=== PATIENT | female | born 1975 | race Hispanic/Latino ===

== ENCOUNTER 2017-10-09 13:03 | Emergency (ER) | payer OTHER ==
[~2017-10-09] VITALS: Ht 160 cm; Wt 92.5 kg
[2017-10-09 14:08] VITALS: BP 121/69
== END 2017-10-09 14:12 | disposition home or self-care (01) ==
LOC: FSED 13:03
DX: S90.572A Other superficial bite of ankle, left ankle, initial encounter (principal); W54.0XXA Bitten by dog, initial encounter; Y93.89 Activity, other specified; Y92.009 Unspecified place in unspecified non-institutional (private) residence as the place of occurrence of the external cause
CPT/HCPCS: 99282